=== PATIENT | male | born 2000 | race Asian ===

== ENCOUNTER 2022-04-08 20:34 | Emergency (ER) | payer OTHER ==
[~2022-04-08] VITALS: Ht 170.2 cm; Wt 50.3 kg
[2022-04-08 20:43] VITALS: TEMP 98.6
[2022-04-08 21:51] LABS: PLATELET COUNT 168 K/uL (142-355)
[2022-04-08 22:02] LABS: POTASSIUM 3.4 mmol/L (3.6-5.2); SODIUM 139 mmol/L (136-145)
[2022-04-08 23:36] VITALS: BP 128/90
== END 2022-04-08 23:36 | disposition home or self-care (01) ==
LOC: ED 20:34
PROVIDERS: Emergency Medicine Emergency Medical Services
DX: F33.8 Other recurrent depressive disorders (principal); Z20.822 Contact with and (suspected) exposure to COVID-19
CPT/HCPCS: 36415; 80053; 80143; 80179; 80307; 85027; 87502; 87635; 93005; 99283; U0003